=== PATIENT | female | born 1940 | race Hispanic/Latino ===

== ENCOUNTER 2018-08-31 10:51 | Inpatient (IN) | payer MEDICARE ==
[2018-08-31 11:34] LABS: BASO # 0.1 K/uL (0.0-0.2); BASO % 0.9 % (0.0-2.0); EOS # 0.3 K/uL (0.0-0.7); EOS % 4.5 % (0.0-4.0); HEMOGLOBIN 12.5 g/dL (12.0-16.0); LYMPH # 1.6 K/uL (1.0-4.3); LYMPH % 26.1 % (20.0-40.0); MEAN CELL VOLUME 88.9 fl (81.0-99.0); MEAN CORPUSCULAR HEMOGLOBIN 28.9 pg (27.0-31.0); MEAN CORPUSCULAR HGB CONC 32.5 g/dL (33.0-37.0); MEAN PLATELET VOLUME 10.3 fl (7.2-11.7); MONO # 0.4 K/uL (0.0-0.8); MONO % 6.8 % (0.0-10.0); NEUT # 3.8 K/uL (1.8-7.0); NEUT % 61.7 % (50.0-75.0); NRBC % 0.2 % (0.0-0.0); RBC 4.32 Mil/uL (3.80-5.20); RED CELL DISTRIBUTION WIDTH 13.3 % (11.5-14.5); WHITE BLOOD COUNT 6.2 K/uL (4.8-10.8)
[2018-08-31 11:43] LABS: PROTHROMBIN TIME 11.4 Seconds (9.8-13.1)
[2018-08-31 11:45] LABS: ALB/GLOB RATIO 1.3 (1.0-2.1); ALBUMIN 4.2 g/dL (3.5-5.0); ALT/SGPT 38 U/L (9-52); AST/SGOT 30 U/L (14-36); BLOOD UREA NITROGEN 26 mg/dl (7-17); CALCIUM 9.1 mg/dL (8.4-10.2); GFR NON-AFRICAN AMERICAN > 60; PARTIAL THROMBOPLASTIN TIME 25.8 Seconds (25.6-37.1)
--- NOTE | 2018-08-31 11:45 | ED PDOC ---
HPI: General Adult Time Seen by Provider: 08/31/18 10:58 Chief Complaint (Nursing): GI Problem Chief Complaint (Provider): GI Problem History Per: Patient History/Exam Limitations: no limitations Additional Complaint(s): 78 years old female transferred from [facility] after she became hypotensive during the procedure of a stress test with Lexiscan. Patient states she felt like she was going to pass out when her blood pressure decreased. She reports feeling nauseous and midsternal chest discomfort that last 30 minutes and resolving at present. Patient complains of mild headache and feeling shaky. She denies shortness of breath. PMD: Dickson Maguire Past Medical History Reviewed: Historical Data, Nursing Documentation, Vital Signs Vital Signs: Last Vital Signs Temp 97.3 F L 08/31/18 11:06 Pulse 66 08/31/18 10:55 Resp 18 08/31/18 10:55 BP 149/121 H 08/31/18 10:55 Pulse Ox 99 08/31/18 10:55 - Medical History PMH: Arthritis, Asthma, Depression, HTN, Hypercholesterolemia, Hypothyroidism - Surgical History Surgical History: Tonsillectomy - Family History Family History: States: Unknown Family Hx - Social History Current smoker - smoking cessation education provided: No Alcohol: None Drugs: Denies - Home Medications Home Medications: Ambulatory Orders Medication Instructions Recorded Acetaminophen [Tylenol Arthritis] 650 mg PO Q8 PRN 08/31/18 Albuterol Sulfate [Ventolin Hfa] 2 puff IH Q6 PRN 08/31/18 Aspirin [Ecotrin] 81 mg PO DAILY 08/31/18 Atorvastatin [Lipitor] 10 mg PO DAILY 08/31/18 Cholecalciferol [Vitamin D 1000 IU] 1 tab PO DAILY 08/31/18 Levocetirizine Dihydrochloride 5 mg PO DAILY 08/31/18 [Xyzal] Levothyroxine [Synthroid] 25 mcg PO DAILY 08/31/18 Montelukast [Singulair] 10 mg PO DAILY 08/31/18 Valsartan/Hydrochlorothiazide 1 tab PO DAILY 08/31/18 [Diovan Hct 160-12.5 mg Tab] traMADol/Acetaminophen [Ultracet 1 tab PO Q6 PRN 08/31/18 37.5/325 mg] - Allergies Allergies/Adverse Reactions: Allergies Allergy/AdvReac Type Severity Reaction Status Date / Time prochlorperazine Allergy Mild RASH Verified 08/31/18 11:08 [From Compazine] Review of Systems ROS Statement: Except As Marked, All Systems Reviewed And Found Negative Cardiovascular: Positive for: Chest Pain ( midsternal) Respiratory: Negative for: Shortness of Breath Gastrointestinal: Positive for: Nausea Neurological: Positive for: Headache (mild) Physical Exam - Reviewed Nursing Documentation Reviewed: Yes Vital Signs Reviewed: Yes - Physical Exam Appears: Positive for: Non-toxic, No Acute Distress Head Exam: Positive for: ATRAUMATIC, NORMOCEPHALIC Skin: Positive for: Normal Color, Warm, Dry Eye Exam: Positive for: Normal appearance, EOMI, PERRL Neck: Positive for: Normal, Painless ROM, Supple Cardiovascular/Chest: Positive for: Regular Rate, Rhythm. Negative for: Murmur Respiratory: Positive for: Normal Breath Sounds. Negative for: Wheezing Gastrointestinal/Abdominal: Positive for: Normal Exam, Soft. Negative for: Tenderness Back: Positive for: Normal Inspection. Negative for: L CVA Tenderness, R CVA Tenderness Extremity: Positive for: Normal ROM. Negative for: Tenderness, Swelling Neurologic/Psych: Positive for: Alert, Oriented (x3) - Laboratory Results Result Diagrams: 08/31/18 11:20 08/31/18 11:20 - ECG O2 Sat by Pulse Oximetry: 99 (RA) Pulse Ox Interpretation: Normal Medical Decision Making Medical Decision Making: Time: 1117 Initial Impression: near syncope, chest pain. Initial Plan: --EKG --CMP --Troponin --Urine dipstick --CBC --PTT --PT --Urinalysis --Chest x-ray 1203 CXR FINDINGS: LUNGS: The lungs are well inflated and clear. PLEURA: No pleural effusions or pneumothorax. CARDIOVASCULAR: The heart is normal in size. No aortic atherosclerotic calcification present. OSSEOUS STRUCTURES: Within normal limits for the patient's age. VISUALIZED UPPER ABDOMEN: Normal. OTHER FINDINGS: None. IMPRESSION: No active pulmonary disease. [address] Ambriz, who says patient needs to complete the remainder of the procedure and she should be sent back to lab. 15:25 Stress test results given by Dr. Ambriz, abnormal, large defect of LAD and inferolateral wall. 15:28 Dr. Felton notified. Scribe Attestation: Documented by Carlota Miramontes, acting as a scribe for Kaleigh Zhang MD. Provider Scribe Attestation: All medical record entries made by the Scribe were at my direction and personally dictated by me. I have reviewed the chart and agree that the record accurately reflects my personal performance of the history, physical exam, medical decision making, and the department course for this patient. I have also personally directed, reviewed, and agree with the discharge instructions and disposition. Disposition - Clinical Impression Clinical Impression: Abnormal stress test, Chest pain - Patient ED Disposition Is Patient to be Admitted: Yes - Disposition Disposition Time: 16:30 Condition: GUARDED Forms: [facility] ([place]) - Pt Status Changed To: Hospital Disposition Of: Inpatient - Admit Certification Admit to Inpatient:: After my assessment, the patient will require hospitalization for at least two midnights. This is because of the severity of symptoms shown, intensity of services needed, and/or the medical risk in this patient being treated as an outpatient. - POA Present On Arrival: None
--- NOTE | 2018-08-31 12:07 | RAD ---
Date of service: 08/31/2018 HISTORY: CP COMPARISON: 07/27/2009 FINDINGS: LUNGS: The lungs are well inflated and clear. PLEURA: No pleural effusions or pneumothorax. CARDIOVASCULAR: The heart is normal in size. No aortic atherosclerotic calcification present. OSSEOUS STRUCTURES: Within normal limits for the patient's age. VISUALIZED UPPER ABDOMEN: Normal. OTHER FINDINGS: None. IMPRESSION: No active pulmonary disease.
[2018-08-31] MEDS ORDERED: Enoxaparin 60 mg Syringe SC STA ×2 (15:42)
--- NOTE | 2018-08-31 19:00 | CARD ---
APPROVED REPORT Date of service: 08/31/2018 EKG Measurement Heart [id number] <Conclusion> Normal sinus rhythm with sinus arrhythmia Possible Left atrial enlargement Borderline ECG
--- NOTE | 2018-08-31 19:16 | CP.PCM.PN ---
Subjective - Date & Time of Evaluation Date of Evaluation: 08/31/18 Time of Evaluation: 22:22 - Subjective Subjective: 78 yo brought to the ER following significantly abnormal stress test and hypotensive episode Objective - Vital Signs/Intake and Output Vital Signs (last 24 hours): Temp Pulse Resp BP Pulse Ox 97.3 F L 66 18 149/121 H 99 08/31/18 11:06 08/31/18 10:55 08/31/18 10:55 08/31/18 10:55 08/31/18 16:56 - Labs Labs: 08/31/18 11:20 08/31/18 11:20 PT 11.4 Seconds (9.8-13.1) 08/31/18 11:20 INR 1.0 08/31/18 11:20 APTT 25.8 Seconds (25.6-37.1) 08/31/18 11:20 - Respiratory Exam Respiratory Exam: Wheezes, NORMAL BREATHING PATTERN - Cardiovascular Exam Cardiovascular Exam: REGULAR RHYTHM - GI/Abdominal Exam GI & Abdominal Exam: Normal Bowel Sounds Assessment and Plan - Assessment and Plan (Free Text) Assessment: Abnormal stress test Hypotensive episode Hx HTN Cholest Cardiology Admission
[2018-08-31 19:51] LABS: URINE BACTERIA RARE (<OCC); URINE BILIRUBIN NEGATIVE (NEGATIVE); URINE BLOOD SMALL (NEGATIVE); URINE CLARITY CLEAR (Clear); URINE COLOR STRAW (YELLOW); URINE GLUCOSE (UA) NEG (NEGATIVE); URINE LEUKOCYTE ESTERASE NEG Leu/uL (Negative); URINE PROTEIN NEGATIVE (NEGATIVE); URINE UROBILINOGEN 0.2-1.0 mg/dL (0.2-1.0)
[2018-08-31 22:54] VITALS: BMI 22.0
[2018-09-01] MEDS ORDERED: Albuterol HFA 90 mcg/actuation (8 g) IH PRN (06:17)
[2018-09-01] MEDS: Levothyroxine 25 MCG TAB PO SCH (07:46)
[2018-09-01 08:32] LABS: EOS # 0.3 K/uL (0.0-0.7); HEMOGLOBIN 12.2 g/dL (12.0-16.0); LYMPH # 1.5 K/uL (1.0-4.3); LYMPH % 35.1 % (20.0-40.0); MEAN CELL VOLUME 88.2 fl (81.0-99.0); MEAN CORPUSCULAR HGB CONC 32.9 g/dL (33.0-37.0); MEAN PLATELET VOLUME 10.5 fl (7.2-11.7); MONO # 0.4 K/uL (0.0-0.8); MONO % 9.2 % (0.0-10.0); NEUT % 47.7 % (50.0-75.0); RBC 4.2 Mil/uL (3.80-5.20); RED CELL DISTRIBUTION WIDTH 13.4 % (11.5-14.5); WHITE BLOOD COUNT 4.1 K/uL (4.8-10.8)
[2018-09-01 08:53] LABS: ALB/GLOB RATIO 1.5 (1.0-2.1); ALT/SGPT 38 U/L (9-52); AST/SGOT 34 U/L (14-36); BLOOD UREA NITROGEN 30 mg/dl (7-17); CALCIUM 9.6 mg/dL (8.4-10.2); GFR NON-AFRICAN AMERICAN > 60; HDL CHOLESTEROL 47 MG/DL (30-70)
[2018-09-01] MEDS: Cholecalciferol 1,000 INTLU TAB PO SCH (08:58)
[2018-09-01] MEDS: Patient's Own Med (Valsartan/Hydrochlorothiazide [Diovan Hct 160-12.5 Mg Tab] 1 TAB) PO SCH (08:59)
[2018-09-01 09:22] LABS: LDL CHOLESTEROL 61 mg/dL (0-129)
--- NOTE | 2018-09-01 11:32 | CP.PCM.CON ---
History of Present Illness - History of Present Illness History of Present Illness: 78 year old female past medical history of hypertension , hypothyroidism admitted for abnormal preoperative Lexiscan stress test with LAD territory ischemia and hypotension. Pt currently stable. Pt will need cardiac catherization for further evaluation requests transfer to [facility] for procedure Past Patient History - Past Medical History & Family History Past Medical History?: Yes - Past Social History Smoking Status: Former Smoker - CARDIAC Hx Cardiac Disorders: Yes - PULMONARY Hx Asthma: Yes - ENDOCRINE/METABOLIC Hx Hypothyroidism: Yes - INTEGUMENTARY Hx Melanoma: Yes - MUSCULOSKELETAL/RHEUMATOLOGICAL Hx Arthritis: Yes Hx Falls: No - PSYCHIATRIC Hx Psychophysiologic Disorder: Yes Hx Anxiety: Yes Hx Substance Use: No - SURGICAL HISTORY Hx Tonsillectomy: Yes - ANESTHESIA Hx Anesthesia: Yes Hx Anesthesia Reactions: No Hx Malignant Hyperthermia: No Meds Allergies/Adverse Reactions: Allergies Allergy/AdvReac Type Severity Reaction Status Date / Time prochlorperazine Allergy Mild RASH Verified 08/31/18 11:08 [From Compazine] - Medications Medications: Current Medications Albuterol (Ventolin Hfa 90 Mcg/Actuation (8 G)) 2 puff IH Q6 PRN PRN Reason: Shortness of Breath Aspirin (Ecotrin) 81 mg PO DAILY [facility] Last Admin: 09/01/18 08:59 Dose: 81 mg Atorvastatin Calcium (Lipitor) 10 mg PO DAILY [facility] Last Admin: 09/01/18 08:59 Dose: 10 mg Cholecalciferol (Vitamin D) 1,000 intlu PO DAILY [facility] Last Admin: 09/01/18 08:58 Dose: 1,000 intlu Home Med (Tramadol/Acetaminophen [Ultracet 37.5/325 Mg]) 1 tab PO Q6 PRN PRN Reason: Pain, severe (8-10) Home Med (Valsartan/Hydrochlorothiazide [Diovan Hct 160-12.5 Mg Tab]) 1 tab PO DAILY [facility] Last Admin: 09/01/18 08:59 Dose: 1 tab Levothyroxine Sodium (Synthroid) 25 mcg PO DAILY@0630 [facility] Last Admin: 09/01/18 07:46 Dose: 25 mcg Loratadine (Claritin) 10 mg PO DAILY [facility] Last Admin: 09/01/18 08:58 Dose: 10 mg Montelukast Sodium (Singulair) 10 mg PO DAILY [facility] Last Admin: 09/01/18 08:59 Dose: 10 mg Physical Exam - ENT Exam ENT Exam: Normal Exam - Neck Exam Neck exam: Positive for: Normal Inspection - Respiratory Exam Respiratory Exam: Clear to Auscultation Bilateral - Cardiovascular Exam Cardiovascular Exam: REGULAR RHYTHM - GI/Abdominal Exam GI & Abdominal Exam: Normal Bowel Sounds - Extremities Exam Extremities exam: Positive for: normal inspection Results - Vital Signs Recent Vital Signs: Last Vital Signs Temp 97.9 F 09/01/18 07:49 Pulse 59 L 09/01/18 07:49 Resp 18 09/01/18 07:49 BP 115/56 L 09/01/18 07:49 Pulse Ox 98 09/01/18 07:49 - Labs Result Diagrams: 09/01/18 08:15 09/01/18 08:15 Labs: Laboratory Results - last 24 hr 08/31/18 08/31/18 08/31/18 10:59 11:20 11:20 WBC 6.2 RBC 4.32 Hgb 12.5 Hct 38.4 MCV 88.9 MCH 28.9 MCHC 32.5 L RDW 13.3 Plt Count 181 MPV 10.3 Neut % (Auto) 61.7 Lymph % (Auto) 26.1 [place] % (Auto) 6.8 Eos % (Auto) 4.5 H Baso % (Auto) 0.9 Neut # (Auto) 3.8 Lymph # (Auto) 1.6 [place] # (Auto) 0.4 Eos # (Auto) 0.3 Baso # (Auto) 0.1 PT INR APTT Sodium 141 Potassium 3.5 L Chloride 108 H Carbon Dioxide 26 Anion Gap 11 BUN 26 H Creatinine 0.5 L Est GFR ( Amer) > 60 Est GFR (Non-Af Amer) > 60 POC Glucose (mg/dL) 99 Random Glucose 92 Calcium 9.1 Total Bilirubin 0.6 AST 30 ALT 38 Alkaline Phosphatase 65 Troponin I < 0.0120 Total Protein 7.3 Albumin 4.2 Globulin 3.1 Albumin/Globulin Ratio 1.3 Triglycerides Cholesterol LDL Cholesterol Direct HDL Cholesterol TSH 3rd Generation Urine Color Urine Clarity Urine pH Ur Specific [place] Urine Protein Urine Glucose (UA) Urine Ketones Urine Blood Urine Nitrate Urine Bilirubin Urine Urobilinogen Ur Leukocyte Esterase Urine RBC (Auto) Urine Microscopic WBC Urine Bacteria 08/31/18 08/31/18 09/01/18 11:20 19:29 08:15 WBC 4.1 L RBC 4.20 Hgb 12.2 Hct 37.1 MCV 88.2 MCH 29.0 MCHC 32.9 L RDW 13.4 Plt Count 178 MPV 10.5 Neut % (Auto) 47.7 L Lymph % (Auto) 35.1 [place] % (Auto) 9.2 Eos % (Auto) 7.0 H Baso % (Auto) 1.0 Neut # (Auto) 2.0 Lymph # (Auto) 1.5 [place] # (Auto) 0.4 Eos # (Auto) 0.3 Baso # (Auto) 0.0 PT 11.4 INR 1.0 APTT 25.8 Sodium Potassium Chloride Carbon Dioxide Anion Gap BUN Creatinine Est GFR ( Amer) Est GFR (Non-Af Amer) POC Glucose (mg/dL) Random Glucose Calcium Total Bilirubin AST ALT Alkaline Phosphatase Troponin I Total Protein Albumin Globulin Albumin/Globulin Ratio Triglycerides Cholesterol LDL Cholesterol Direct HDL Cholesterol TSH 3rd Generation Urine Color Straw Urine Clarity Clear Urine pH 6.0 Ur Specific [place] 1.009 Urine Protein Negative Urine Glucose (UA) Neg Urine Ketones Negative Urine Blood Small Urine Nitrate Negative Urine Bilirubin Negative Urine Urobilinogen 0.2-1.0 Ur Leukocyte Esterase Neg Urine RBC (Auto) 6 H Urine Microscopic WBC 4 Urine Bacteria Rare 09/01/18 08:15 WBC RBC Hgb Hct MCV MCH MCHC RDW Plt Count MPV Neut % (Auto) Lymph % (Auto) [place] % (Auto) Eos % (Auto) Baso % (Auto) Neut # (Auto) Lymph # (Auto) [place] # (Auto) Eos # (Auto) Baso # (Auto) PT INR APTT Sodium 143 Potassium 3.7 Chloride 105 Carbon Dioxide 30 Anion Gap 12 BUN 30 H Creatinine 0.8 Est GFR ( Amer) > 60 Est GFR (Non-Af Amer) > 60 POC Glucose (mg/dL) Random Glucose 78 Calcium 9.6 Total Bilirubin 0.4 AST 34 ALT 38 Alkaline Phosphatase 58 Troponin I 0.0140 Total Protein 6.7 Albumin 4.0 Globulin 2.7 Albumin/Globulin Ratio 1.5 Triglycerides 69 Cholesterol 118 LDL Cholesterol Direct 61 HDL Cholesterol 47 TSH 3rd Generation 1.36 Urine Color Urine Clarity Urine pH Ur Specific [place] Urine Protein Urine Glucose (UA) Urine Ketones Urine Blood Urine Nitrate Urine Bilirubin Urine Urobilinogen Ur Leukocyte Esterase Urine RBC (Auto) Urine Microscopic WBC Urine Bacteria Assessment & Plan - Assessment and Plan (Free Text) Assessment: + Lexiscan Stress test preoperative Transfer to [facility] for Cath/ Poss PTCA
--- NOTE | 2018-09-01 18:13 | CP.PCM.HP ---
History of Present Illness - History of Present Illness History of Present Illness: 78 yo admitted for abnormal stress test and hypotensive episode Present on Admission - Present on Admission Any Indicators Present on Admission: No Past Patient History - Past Medical History & Family History Past Medical History?: Yes - Past Social History Smoking Status: Former Smoker - CARDIAC Hx Cardiac Disorders: Yes - PULMONARY Hx Asthma: Yes - ENDOCRINE/METABOLIC Hx Hypothyroidism: Yes - INTEGUMENTARY Hx Melanoma: Yes - MUSCULOSKELETAL/RHEUMATOLOGICAL Hx Arthritis: Yes Hx Falls: No - PSYCHIATRIC Hx Psychophysiologic Disorder: Yes Hx Anxiety: Yes Hx Substance Use: No - SURGICAL HISTORY Hx Tonsillectomy: Yes - ANESTHESIA Hx Anesthesia: Yes Hx Anesthesia Reactions: No Hx Malignant Hyperthermia: No Meds Allergies/Adverse Reactions: Allergies Allergy/AdvReac Type Severity Reaction Status Date / Time prochlorperazine Allergy Mild RASH Verified 08/31/18 11:08 [From Compazine] Physical Exam - Respiratory Exam Respiratory Exam: NORMAL BREATHING PATTERN - Cardiovascular Exam Cardiovascular Exam: REGULAR RHYTHM - GI/Abdominal Exam GI & Abdominal Exam: Normal Bowel Sounds Results - Vital Signs Recent Vital Signs: Last Vital Signs Temp 97.6 F 09/01/18 15:42 Pulse 69 09/01/18 15:42 Resp 17 09/01/18 15:42 BP 116/65 09/01/18 15:42 Pulse Ox 97 09/01/18 15:42 - Labs Result Diagrams: 09/01/18 08:15 09/01/18 08:15 Labs: Laboratory Results - last 24 hr 08/31/18 08/31/18 09/01/18 10:59 19:29 08:15 WBC 4.1 L RBC 4.20 Hgb 12.2 Hct 37.1 MCV 88.2 MCH 29.0 MCHC 32.9 L RDW 13.4 Plt Count 178 MPV 10.5 Neut % (Auto) 47.7 L Lymph % (Auto) 35.1 [place] % (Auto) 9.2 Eos % (Auto) 7.0 H Baso % (Auto) 1.0 Neut # (Auto) 2.0 Lymph # (Auto) 1.5 [place] # (Auto) 0.4 Eos # (Auto) 0.3 Baso # (Auto) 0.0 Sodium Potassium Chloride Carbon Dioxide Anion Gap BUN Creatinine Est GFR ( Amer) Est GFR (Non-Af Amer) POC Glucose (mg/dL) 99 Random Glucose Calcium Total Bilirubin AST ALT Alkaline Phosphatase Troponin I Total Protein Albumin Globulin Albumin/Globulin Ratio Triglycerides Cholesterol LDL Cholesterol Direct HDL Cholesterol TSH 3rd Generation Urine Color Straw Urine Clarity Clear Urine pH 6.0 Ur Specific [place] 1.009 Urine Protein Negative Urine Glucose (UA) Neg Urine Ketones Negative Urine Blood Small Urine Nitrate Negative Urine Bilirubin Negative Urine Urobilinogen 0.2-1.0 Ur Leukocyte Esterase Neg Urine RBC (Auto) 6 H Urine Microscopic WBC 4 Urine Bacteria Rare 09/01/18 08:15 WBC RBC Hgb Hct MCV MCH MCHC RDW Plt Count MPV Neut % (Auto) Lymph % (Auto) [place] % (Auto) Eos % (Auto) Baso % (Auto) Neut # (Auto) Lymph # (Auto) [place] # (Auto) Eos # (Auto) Baso # (Auto) Sodium 143 Potassium 3.7 Chloride 105 Carbon Dioxide 30 Anion Gap 12 BUN 30 H Creatinine 0.8 Est GFR ( Amer) > 60 Est GFR (Non-Af Amer) > 60 POC Glucose (mg/dL) Random Glucose 78 Calcium 9.6 Total Bilirubin 0.4 AST 34 ALT 38 Alkaline Phosphatase 58 Troponin I 0.0140 Total Protein 6.7 Albumin 4.0 Globulin 2.7 Albumin/Globulin Ratio 1.5 Triglycerides 69 Cholesterol 118 LDL Cholesterol Direct 61 HDL Cholesterol 47 TSH 3rd Generation 1.36 Urine Color Urine Clarity Urine pH Ur Specific [place] Urine Protein Urine Glucose (UA) Urine Ketones Urine Blood Urine Nitrate Urine Bilirubin Urine Urobilinogen Ur Leukocyte Esterase Urine RBC (Auto) Urine Microscopic WBC Urine Bacteria Assessment & Plan - Assessment and Plan (Free Text) Assessment: Abnormal stress test Hypotensive episode Hx HTN Cholest Cardiology Cardiac cath - Date & Time Date: 09/01/18
--- NOTE | 2018-09-01 20:52 | CARD ---
APPROVED REPORT Date of service: 09/01/2018 EKG Measurement Heart [id number] <Conclusion> Normal sinus rhythm Possible Inferior infarct, age undetermined Abnormal ECG
[2018-09-02 05:05] VITALS: TEMP 97.9
[2018-09-02] MEDS: Levothyroxine 25 MCG TAB PO SCH (05:42)
[2018-09-02] MEDS: Cholecalciferol 1,000 INTLU TAB PO SCH (08:22)
[2018-09-02] MEDS: Patient's Own Med (Valsartan/Hydrochlorothiazide [Diovan Hct 160-12.5 Mg Tab] 1 TAB) PO SCH (08:22)
[2018-09-02 08:31] VITALS: BP 104/59; RESP 18; O2SAT 95
[2018-09-02 13:24] VITALS: PULSE 80
--- NOTE | 2018-09-02 19:48 | CP.PCM.PN ---
Subjective - Date & Time of Evaluation Date of Evaluation: 09/02/18 Time of Evaluation: 22:22 - Subjective Subjective: Above noted Objective - Vital Signs/Intake and Output Vital Signs (last 24 hours): Temp Pulse Resp BP Pulse Ox 97.9 F 80 18 104/59 L 95 09/02/18 08:30 09/02/18 09:00 09/02/18 08:30 09/02/18 08:30 09/02/18 08:30 - Medications Medications: Current Medications Acetaminophen (Tylenol 325mg Tab) 325 mg PO Q6 PRN PRN Reason: PAIN 1-10 Last Admin: 09/02/18 08:26 Dose: 325 mg Albuterol (Ventolin Hfa 90 Mcg/Actuation (8 G)) 2 puff IH Q6 PRN PRN Reason: Shortness of Breath Aspirin (Ecotrin) 81 mg PO DAILY [facility] Last Admin: 09/02/18 08:22 Dose: 81 mg Atorvastatin Calcium (Lipitor) 10 mg PO DAILY [facility] Last Admin: 09/02/18 08:22 Dose: 10 mg Cholecalciferol (Vitamin D) 1,000 intlu PO DAILY [facility] Last Admin: 09/02/18 08:22 Dose: 1,000 intlu Home Med (Valsartan/Hydrochlorothiazide [Diovan Hct 160-12.5 Mg Tab]) 1 tab PO DAILY [facility] Last Admin: 09/02/18 08:22 Dose: 1 tab Levothyroxine Sodium (Synthroid) 25 mcg PO DAILY@0630 [facility] Last Admin: 09/02/18 05:42 Dose: 25 mcg Loratadine (Claritin) 10 mg PO DAILY [facility] Last Admin: 09/02/18 08:22 Dose: 10 mg Montelukast Sodium (Singulair) 10 mg PO DAILY [facility] Last Admin: 09/02/18 08:22 Dose: 10 mg Tramadol HCl (Ultram) 50 mg PO Q6 PRN PRN Reason: PAIN 1-10 Last Admin: 09/02/18 08:27 Dose: 50 mg - Labs Labs: 09/01/18 08:15 09/01/18 08:15 PT 11.4 Seconds (9.8-13.1) 08/31/18 11:20 INR 1.0 08/31/18 11:20 APTT 25.8 Seconds (25.6-37.1) 08/31/18 11:20 - Respiratory Exam Respiratory Exam: NORMAL BREATHING PATTERN - Cardiovascular Exam Cardiovascular Exam: REGULAR RHYTHM - GI/Abdominal Exam GI & Abdominal Exam: Normal Bowel Sounds Assessment and Plan - Assessment and Plan (Free Text) Assessment: Abnormal stress test Hypotensive episode Hx HTN Cholest Cardiology Cardiac cath
== END 2018-09-02 19:00 | disposition short-term general hospital (02) | DRG 316 ==
LOC: H.ER 10:51 → H.ERHOLD 16:30 → H.TEL 21:15
PROVIDERS: ADMIT Family Medicine Geriatric Medicine; ATTEND Family Medicine Geriatric Medicine
DX: I95.89 Other hypotension (principal); R94.39 Abnormal result of other cardiovascular function study; R07.89 Other chest pain; I10 Essential (primary) hypertension; E78.00 Pure hypercholesterolemia, unspecified; E03.9 Hypothyroidism, unspecified; J45.909 Unspecified asthma, uncomplicated; F41.9 Anxiety disorder, unspecified; Z79.82 Long term (current) use of aspirin; Z85.820 Personal history of malignant melanoma of skin; Z87.891 Personal history of nicotine dependence